=== PATIENT | female | born 1955 | race Caucasian/White ===

== ENCOUNTER → 2016-12-17 | Outpatient (CLI) | payer BC, OTHER ==
[~2016-12-17] MED LIST: ASPI81TA28 PO; CYAN100020 PO; LEVO1TAB PO; PROP20TA66 PO; SIMV20TA2 PO
--- NOTE | 2016-12-17 11:01 | DIAGNOSTIC IMAGING REPORT ---
CHEST 2 VIEWS ROUTINE HISTORY: Short of breath. COMPARISON: Chest 05/25/2014. FINDINGS: The lungs are clear. Cardiac silhouette is normal in size. No pleural effusions. No pneumothorax. Prior cholecystectomy. IMPRESSION: No acute process. Electronically signed by: Caden Braun M.D. 12/17/2016 10:59 AM Dictated Date/Time: 12/17/2016 10:56 AM
== END | disposition home or self-care (01) ==
LOC: C.RAD 10:12
PROVIDERS: ATTEND Nurse Practitioner Family
DX: R60.1 Generalized edema (principal); R06.00 Dyspnea, unspecified

== ENCOUNTER → 2017-01-21 | Outpatient (CLI) | payer BC, OTHER ==
--- NOTE | 2017-01-21 08:58 | DIAGNOSTIC IMAGING REPORT ---
CT OF THE ABDOMEN AND PELVIS WITHOUT CONTRAST CLINICAL HISTORY: Dysuria. COMPARISON STUDY: Renal ultrasound January 15, 2013. TECHNIQUE: Axial images of the abdomen and pelvis were obtained without IV contrast. Images were reviewed in the axial, sagittal, and coronal planes. A dose lowering technique was utilized adhering to the principles of ALARA. FINDINGS: No renal, ureteral or bladder calculi are present. There is no hydronephrosis or hydroureter. A 9 mm fat-containing lesion within the midpole of the left kidney reflects an angiomyolipoma which is unchanged since ultrasound of January 15, 2013. Evaluation of the remainder of the abdomen and pelvis is suboptimal on this unenhanced exam. There is no biliary ductal dilatation status post cholecystectomy. Unenhanced images of liver, spleen, adrenal glands and pancreas are normal. There is no evidence for a bowel obstruction. The appendix is normal. There is mild colonic diverticulosis without evidence for acute diverticulitis. Pelvic calcifications reflect phleboliths. There are no suspicious osseous lesions. The ovaries are not enlarged. IMPRESSION: 1. No urinary calculi or hydronephrosis. 2. No acute process within the abdomen or pelvis on unenhanced exam. 3. 9 mm left renal angiomyolipoma. Electronically signed by: Min Watson M.D. 01/21/2017 8:56 AM Dictated Date/Time: 01/21/2017 8:45 AM
== END | disposition home or self-care (01) ==
LOC: C.CTS 08:32
PROVIDERS: ATTEND Urology
DX: R30.0 Dysuria (principal)